=== PATIENT | female | born 1940 | race Caucasian/White ===

== ENCOUNTER → 2016-11-06 | Outpatient (CLI) | payer OTHER ==
[~2016-11-06] MED LIST: ACCUNEB SO1.25 MG/1 INH; AMITRIPTYLINE H10 M3 PO; BENICAR20 MG PO; BENTYL 20 MG TA20 M1 PO; BP PILL; COLACE100 MG PO; COZAAR 50 MG TA50 M2 PO; FAMCICLOVIR500 MG PO; LYRICA 50 MG50 MG PO; MEDROL DOSPAK21 TAB PO; NEXIUM40 MG PO; NORCO 10-325 T1 EACH PO; OXYCODONE HCL15 MG PO; POTASSIUM20 PO; PREDNISONE 10 M10 MG PO; PRILOSEC40 MG PO; SENNA PO; STOMACH PILL; VALIUM5 MG PO; VENTOLIN HFA 1818 GM INH; XANAX 0.5 MG0.5 MG PO; XARELTO15 MG PO; ZPAK PO
== END ==
LOC: SLEEPLAB 04-17 14:46
DX: G47.33 Obstructive sleep apnea (adult) (pediatric) (principal)

== ENCOUNTER → 2017-01-02 | Outpatient (CLI) | payer OTHER | LOC: ULTRA 15:30 | DX: M47.896 Other spondylosis, lumbar region (principal); I82.402 Acute embolism and thrombosis of unspecified deep veins of left lower extremity; M79.605 Pain in left leg; M79.89 Other specified soft tissue disorders ==

== ENCOUNTER → 2017-02-06 | Outpatient (CLI) | payer OTHER ==
[~2017-02-06] MED LIST changes: +ALBUTEROL2.5 MG/31 INH; +CHOLESTYRAMINE P4 GM PO; +CIPRO500 MG PO; +COMPAZINE10 MG PO; +COUMADIN 5 MG TA5 M1 PO; +KLOR-CON 1010 MEQ PO; +PRADAXA150 MG PO; +PROAIR HFA8.5 GM
== END ==
LOC: ULTRA 12:02
DX: M79.605 Pain in left leg (principal); R60.0 Localized edema

== ENCOUNTER 2017-08-04 11:58 | Emergency (ER) | payer OTHER ==
[~2017-08-04] VITALS: Ht 154.9 cm; Wt 86.2 kg
--- NOTE | ~2017-08-04 | EKG ---
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
[2017-08-04 14:20] LABS: ABSOLUTE NEUTROPHILS 3.7 thou/uL (1.4-8.2); BASOPHILS 0.4 % (0.0-2.0); EOSINOPHILS 1.3 % (0.0-3.0); HEMATOCRIT 38.2 % (37.0-47.0); HEMOGLOBIN 12.8 gm/dL (12.0-15.0); LYMPHOCYTES 33.9 % (24.0-44.0); MCH 29.9 pg (26.0-34.0); MCHC 33.4 g/dL (28.0-37.0); MCV 89.5 fL (80.0-100.0); MONOCYTES 5.3 % (1.0-8.0); PLATELET COUNT 222 thou/uL (150-400); POLYS 59.1 % (36.0-66.0); RBC 4.27 mil/uL (4.20-5.00); RDW 13.9 % (10.5-14.5); WBC 6.3 thou/uL (4.0-11.0)
[2017-08-04 14:27] LABS: ANION GAP 7 mmol/L (7-16); BUN 13 mg/dL (7-18); CALCIUM 9.5 mg/dL (8.5-10.1); CHLORIDE 107 mmol/L (98-107); CO2 27 mmol/L (21-32); CREATININE 1.2 mg/dL (0.6-1.0); GLUCOSE 108 mg/dL (74-106); POTASSIUM 4.2 mmol/L (3.5-5.1); SODIUM 141 mmol/L (136-145)
[2017-08-04 14:34] LABS: INR 1.3; PROTIME 13.4 Seconds (9.3-11.4)
[2017-08-04 14:36] LABS: ALBUMIN 3.5 g/dL (3.4-5.0); SGOT 16 U/L (15-37); SGPT 21 U/L (30-65); TOTAL BILIRUBIN 0.5 mg/dL (<0.1-1.0); TROPONIN-I < 0.04 ng/mL (<0.06)
[2017-08-04 15:43] LABS: URINE BILIRUBIN NEGATIVE (Negative); URINE BLOOD NEGATIVE (Negative); URINE CLARITY CLEAR; URINE COLOR YELLOW; URINE GLUCOSE-RANDOM* NEGATIVE (Negative); URINE KETONES NEGATIVE (Negative); URINE LEUKOCYTES-REFLEX NEGATIVE (Negative); URINE NITRITE-REFLEX NEGATIVE (Negative); URINE PROTEIN (DIPSTICK) NEGATIVE (Negative); URINE SPECIFIC GRAVITY <= 1.005 (1.005-1.035); URINE UROBILINOGEN 0.2 E.U./dl (0.2-1.0)
== END 2017-08-04 16:00 | disposition home or self-care (01) ==
LOC: ER 11:58
PROVIDERS: Nurse Practitioner Family
DX: R06.00 Dyspnea, unspecified (principal); I10 Essential (primary) hypertension; K21.9 Gastro-esophageal reflux disease without esophagitis; G47.30 Sleep apnea, unspecified; F41.9 Anxiety disorder, unspecified; Z86.711 Personal history of pulmonary embolism; Z90.49 Acquired absence of other specified parts of digestive tract; Z86.718 Personal history of other venous thrombosis and embolism

== ENCOUNTER 2017-08-05 13:53 | Inpatient (IN) | payer OTHER ==
[~2017-08-05] VITALS: Ht 154.9 cm; Wt 90.0 kg
--- NOTE | ~2017-08-05 | 2DMMODE ---
[facility] [address] [place] [address] 2 D/M-MODE ECHOCARDIOGRAM Name: FABHCARLENE Room #: 454-P ADM IN M.R.#: [id number] Admission: 08/05/17 Attend Phys: Aakash Banks Discharge: Date of : 40 Date of Service: 08/06/17 1252 Report #: [id number] THIS REPORT FOR: //name// APPROVED REPORT Study performed: 08/06/2017 11:57:58 EXAM: Comprehensive 2D, Doppler, and color-flow Echocardiogram Patient Location: Bedside Room #: 454 Status: routine BSA: 1.88 HR: 60 bpm BP: 134/65 mmHg Other Information Study Quality: Adequate Indications Dyspnea Syncope 2D Dimensions RVDd: 40.32 mm LVEF(%): 54.20 (>50%) IVSd: 13.12 (7-11mm) LVOT Diam: 19.79 (18-24mm) LVDd: 42.26 mm PWd: 13.21 (7-11mm) Ascending Ao: 31.45 (22-36mm) LVDs: 30.52 (25-40mm) Aortic Root: 29.79 mm IVC: 10.00 mm Sanford's LVEF: 54.20 % Volumes Left Atrial Volume (Systole) Single Plane 4CH: 44.01 mL Single Plane 2CH: 53.89 mL LA ESV Index: 28.00 mL/m2 Aortic Valve AoV Peak Ignacio.: 1.40 m/s AO Peak Gr.: 7.89 mmHg LVOT Max P.35 mmHg LVOT Max V: 1.16 m/s CHRISTIN Vmax: 2.53 cm2 Mitral Valve E/A Ratio: 1.5 MV Decel. Time: 176.27 ms [facility] [address] [place] [address] 2 D/M-MODE ECHOCARDIOGRAM Name: CHARLENE SANON Room #: 454-P [facility] IN ..#: [id number] Admission: 08/05/17 Attend Phys: Aakash Banks Discharge: Date of : 40 Date of Service: 08/06/17 1252 Report #: [id number] MV E Max Ignacio.: 1.14 m/s MV A Ignacio.: 0.78 m/s MV PHT: 51.12 ms IVRT: 96.89 ms Pulmonary Valve PV Peak Ignacio.: 0.88 m/s PV Peak Gr.: 3.10 mmHg Pulmonary Vein P Vein S: 0.82 m/s P Vein A: 0.28 m/s P Vein D: 0.53 m/s P Vein A Dur.: 101.5 msec P Vein S/D Ratio: 1.55 Tricuspid Valve TR Peak Ignacio.: 2.17 m/s TR Peak Gr.: 18.75 mmHg PA Pressure: 24.00 mmHg Left Ventricle The left ventricle is normal size. Mild concentric left ventricular hypertrophy. The left ventricular systolic function is normal. The left ventricular ejection fraction is within the normal range. LVEF is 55-60%. The left ventricular diastolic function is normal. Right Ventricle Right ventricle is at the upper limits of normal. The right ventricular systolic function is normal. Atria The left atrium size is normal. Right atrium is at the upper limits of normal. Aortic Valve The aortic valve is normal in structure. No aortic regurgitation is present. There is no aortic valvular stenosis. Mitral Valve The mitral valve is normal in structure. Trace mitral regurgitation. No evidence of mitral valve stenosis. Tricuspid Valve The tricuspid valve is normal in structure. There is trace tricuspid regurgitation. There is no pulmonary hypertension. Pulmonic Valve The pulmonary valve is normal in structure. There is no pulmonic [address] [address] 2 D/M-MODE ECHOCARDIOGRAM Name: FABCHARLENE Room #: 454-P [facility] IN ..#: [id number] Admission: 08/05/17 Attend Phys: Aakash Banks Discharge: Date of : 40 Date of Service: 08/06/17 1252 Report #: [id number] valvular regurgitation. Great Vessels The aortic root is normal in size. IVC is normal in size and collapses >50% with inspiration. Pericardium There is no pericardial effusion. <Conclusion> The left ventricle is normal size. Mild concentric left ventricular hypertrophy. LVEF is 55-60%. Right ventricle is at the upper limits of normal. The left atrium size is normal. The aortic valve is normal in structure. There is no aortic valvular stenosis. Trace mitral regurgitation. There is trace tricuspid regurgitation. There is no pulmonary hypertension. The aortic root is normal in size. There is no pericardial effusion. <ELECTRONICALLY SIGNED> By: Pascual Miramontes MD, FACC 08/06/17 1252 1252 125 Pascual Miramontes MD, FACC /INF
--- NOTE | ~2017-08-05 | EKG ---
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: Owen HARDWICK : 1940 Requested By: Mirella Robles Order Number: [id number] MD: Charles Nunes Measurements Intervals [place] Rate: 55 P: 69 VA: 152 QRS: 79 QRSD: 102 T: 87 QT: 446 QTc: 427 Interpretive Statements Sinus rhythm Low voltage, precordial leads Borderline T abnormalities, anterior leads Compared to ECG 08/04/2017 14:04:35 Low QRS voltage now present T-wave abnormality now present Electronically Signed On 08-05-2017 21:26:51 CDT by Charles Nunes [email or web address] <ELECTRONICALLY SIGNED> By: Charles Nunes MD 08/05/17 2126 1448 1448 Charles Nunes MD /[facility]
[2017-08-05 14:08] VITALS: BP 123/60
[2017-08-05 15:43] LABS: ABSOLUTE NEUTROPHILS 3.6 thou/uL (1.4-8.2); BASOPHILS 0.6 % (0.0-2.0); EOSINOPHILS 1.7 % (0.0-3.0); HEMATOCRIT 36.2 % (37.0-47.0); HEMOGLOBIN 12.3 gm/dL (12.0-15.0); LYMPHOCYTES 38.3 % (24.0-44.0); MCH 30.5 pg (26.0-34.0); MCHC 33.9 g/dL (28.0-37.0); MONOCYTES 6.6 % (1.0-8.0); PLATELET COUNT 198 thou/uL (150-400); POLYS 52.8 % (36.0-66.0); RBC 4.02 mil/uL (4.20-5.00); RDW 13.9 % (10.5-14.5); WBC 6.8 thou/uL (4.0-11.0)
[2017-08-05 15:55] LABS: ANION GAP 7 mmol/L (7-16); BUN 17 mg/dL (7-18); CALCIUM 9.1 mg/dL (8.5-10.1); CHLORIDE 104 mmol/L (98-107); CO2 28 mmol/L (21-32); CREATININE 1.2 mg/dL (0.6-1.0); GLUCOSE 123 mg/dL (74-106); POTASSIUM 4.2 mmol/L (3.5-5.1); SODIUM 139 mmol/L (136-145)
[2017-08-05 16:05] LABS: TROPONIN-I < 0.04 ng/mL (<0.06)
[2017-08-05 16:55] VITALS: BP 123/60
[2017-08-05 18:00] VITALS: BP 134/59
[2017-08-05 18:02] VITALS: BP 126/78
[2017-08-05 19:23] VITALS: BP 149/59
[2017-08-05 23:25] VITALS: BP 123/36
[2017-08-06 05:12] VITALS: BP 139/47
[2017-08-06 08:14] VITALS: BP 132/52
[2017-08-06 10:10] VITALS: BP 134/65
[2017-08-06 17:36] VITALS: BP 165/72
[2017-08-06 20:00] VITALS: BP 152/72
[2017-08-07 05:31] VITALS: BP 126/51
[2017-08-07 07:57] VITALS: BP 114/49
[2017-08-07] MEDS ORDERED: VANCOMYCIN HCL10 GM PO (10:08)
[2017-08-07 11:43] VITALS: BP 114/49
== END 2017-08-07 13:51 | disposition home or self-care (01) | DRG 641 ==
LOC: ER 13:53 → 4W 15:53 → EROBS 15:53 → 4W 18:01 → ENTRNSPT 08-07 13:44 → EDTRNSPTSTS 08-07 13:48 → 4W 08-07 13:51
PROVIDERS: Emergency Medicine
DX: E86.0 Dehydration (principal); F41.9 Anxiety disorder, unspecified; K21.9 Gastro-esophageal reflux disease without esophagitis; I10 Essential (primary) hypertension; G89.29 Other chronic pain; J45.909 Unspecified asthma, uncomplicated; K52.9 Noninfective gastroenteritis and colitis, unspecified; Z28.21 Immunization not carried out because of patient refusal; Z90.49 Acquired absence of other specified parts of digestive tract; Z87.81 Personal history of (healed) traumatic fracture; Z86.718 Personal history of other venous thrombosis and embolism; Z86.711 Personal history of pulmonary embolism; Z79.899 Other long term (current) drug therapy
CPT/HCPCS: 10045

== ENCOUNTER → 2017-09-10 | Outpatient (CLI) | payer OTHER ==
[~2017-09-10] MED LIST changes: +VANCOMYCIN HCL10 GM PO
== END ==
LOC: RAD 13:58
DX: J44.9 Chronic obstructive pulmonary disease, unspecified (principal)

== ENCOUNTER 2017-11-15 12:34 | Emergency (ER) | payer OTHER ==
[~2017-11-15] VITALS: Ht 165.1 cm; Wt 90.7 kg
--- NOTE | ~2017-11-15 | EKG ---
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 : 1940 Requested By: Yuir Nam Order Number: [id number] MD: Killian Arteaga Measurements Intervals [place] Rate: 61 P: 52 AR: 151 QRS: 65 QRSD: 108 T: 81 QT: 436 QTc: 440 Interpretive Statements Sinus rhythm Nonspecific T abnrm, anterolateral leads Compared to ECG 08/05/2017 14:48:39 No significant change was found Electronically Signed On 11-16-2017 8:38:05 CDT by Killian Arteaga [email or web address] <ELECTRONICALLY SIGNED> By: Killian Arteaga MD, [facility] 11/16/17 0838 1405 140 Killian Arteaga MD, FACC /EPI
[2017-11-15 13:33] LABS: ABSOLUTE NEUTROPHILS 3.8 thou/uL (1.4-8.2); BASOPHILS 0.5 % (0.0-2.0); EOSINOPHILS 1.3 % (0.0-3.0); HEMATOCRIT 36.3 % (37.0-47.0); HEMOGLOBIN 12.6 gm/dL (12.0-15.0); LYMPHOCYTES 36.1 % (24.0-44.0); MCH 32.1 pg (26.0-34.0); MCHC 34.7 g/dL (28.0-37.0); MCV 92.3 fL (80.0-100.0); MONOCYTES 5.4 % (1.0-8.0); PLATELET COUNT 204 thou/uL (150-400); POLYS 56.7 % (36.0-66.0); RBC 3.94 mil/uL (4.20-5.00); RDW 12.4 % (10.5-14.5); WBC 6.7 thou/uL (4.0-11.0)
[2017-11-15 13:40] LABS: ANION GAP 9 mmol/L (7-16); BUN 17 mg/dL (7-18); CALCIUM 8.7 mg/dL (8.5-10.1); CHLORIDE 107 mmol/L (98-107); CO2 25 mmol/L (21-32); CREATININE 1.2 mg/dL (0.6-1.0); GLUCOSE 121 mg/dL (74-106); POTASSIUM 3.9 mmol/L (3.5-5.1); SODIUM 141 mmol/L (136-145)
[2017-11-15 13:48] LABS: ALBUMIN 3.4 g/dL (3.4-5.0); SGOT 18 U/L (15-37); SGPT 28 U/L (30-65); TOTAL BILIRUBIN 0.4 mg/dL (<0.1-1.0); TOTAL PROTEIN 6.8 g/dL (6.4-8.2); TROPONIN-I <0.06 ng/mL (<0.06)
[2017-11-15 15:07] LABS: URINE BILIRUBIN NEGATIVE (Negative); URINE BLOOD TRACE (Negative); URINE CLARITY CLEAR; URINE COLOR YELLOW; URINE GLUCOSE-RANDOM* NEGATIVE (Negative); URINE KETONES NEGATIVE (Negative); URINE LEUKOCYTES-REFLEX NEGATIVE (Negative); URINE NITRITE-REFLEX NEGATIVE (Negative); URINE PROTEIN (DIPSTICK) NEGATIVE (Negative); URINE SPECIFIC GRAVITY <= 1.005 (1.005-1.035); URINE UROBILINOGEN 0.2 E.U./dl (0.2-1.0)
[2017-11-15] MEDS ORDERED: VAGISIL CREAM28 G1 TOP (15:50)
[2017-11-15] MEDS ORDERED: FLAGYL500 MG PO (15:50)
[2017-11-16 14:10] LABS: NEISSERIA GONORRHEA-PCR Negative (Negative)
== END 2017-11-15 16:00 | disposition home or self-care (01) ==
LOC: ER 12:34
PROVIDERS: Physician Assistant
DX: R19.7 Diarrhea, unspecified (principal); R06.02 Shortness of breath; N89.8 Other specified noninflammatory disorders of vagina; I10 Essential (primary) hypertension; K21.9 Gastro-esophageal reflux disease without esophagitis; F41.9 Anxiety disorder, unspecified; Z90.49 Acquired absence of other specified parts of digestive tract; Z88.1 Allergy status to other antibiotic agents; Z88.8 Allergy status to other drugs, medicaments and biological substances

== ENCOUNTER 2018-02-06 12:41 | Emergency (ER) | payer OTHER ==
[~2018-02-06] VITALS: Ht 154.9 cm; Wt 98.9 kg
--- NOTE | ~2018-02-06 | EKG ---
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 : 1940 Requested By: Suly Garvin Order Number: [id number] MD: Killian Arteaga Measurements Intervals [place] Rate: 68 P: 61 DC: 148 QRS: 62 QRSD: 93 T: 71 QT: 429 QTc: 457 Interpretive Statements Sinus rhythm Nonspecific T wave abnormality Compared to ECG 11/15/2017 14:05:14 No significant change was found Electronically Signed On 02-06-2018 17:17:22 CDT by Killian Arteaga [email or web address] <ELECTRONICALLY SIGNED> By: Killian Arteaga MD, [facility] 02/06/18 1717 1309 1309 Killian Arteaga MD, FACC /EPI
[~2018-02-06 12:41] MED LIST changes: +FLAGYL500 MG PO; +VAGISIL CREAM28 G1 TOP
[2018-02-06] MEDS ORDERED: PROTONIX 20 MG20 M1 PO (13:01)
[2018-02-06 13:56] LABS: ABSOLUTE NEUTROPHILS 3.5 thou/uL (1.4-8.2); BASOPHILS 0.7 % (0.0-2.0); EOSINOPHILS 1.6 % (0.0-3.0); HEMATOCRIT 35.5 % (37.0-47.0); HEMOGLOBIN 12.1 gm/dL (12.0-15.0); LYMPHOCYTES 36.4 % (24.0-44.0); MCH 32.2 pg (26.0-34.0); MCV 94.4 fL (80.0-100.0); PLATELET COUNT 206 thou/uL (150-400); POLYS 56.3 % (36.0-66.0); RBC 3.75 mil/uL (4.20-5.00); RDW 12.6 % (10.5-14.5); WBC 6.1 thou/uL (4.0-11.0)
[2018-02-06 14:04] LABS: CREATININE 1.2 mg/dL (0.6-1.0); POTASSIUM 3.9 mmol/L (3.5-5.1)
[2018-02-06 14:07] LABS: INR 1.2; PROTIME 12.4 Seconds (9.3-11.4)
[2018-02-06 14:10] LABS: TOTAL BILIRUBIN 0.4 mg/dL (<0.1-1.0); TOTAL PROTEIN 6.4 g/dL (6.4-8.2)
[2018-02-06 14:21] LABS: ALBUMIN 3.4 g/dL (3.4-5.0)
[2018-02-06] MEDS ORDERED: ANUSOL-HC30 GM TOP (15:12)
== END 2018-02-06 15:25 | disposition home or self-care (01) ==
LOC: ER 12:41
PROVIDERS: Physician Assistant
DX: K64.4 Residual hemorrhoidal skin tags (principal); R06.00 Dyspnea, unspecified; R53.1 Weakness; I10 Essential (primary) hypertension; J44.9 Chronic obstructive pulmonary disease, unspecified; K21.9 Gastro-esophageal reflux disease without esophagitis; Z90.49 Acquired absence of other specified parts of digestive tract; Z86.711 Personal history of pulmonary embolism; Z86.718 Personal history of other venous thrombosis and embolism; Z79.899 Other long term (current) drug therapy; Z88.8 Allergy status to other drugs, medicaments and biological substances

== ENCOUNTER 2019-04-17 13:01 | Emergency (ER) | payer OTHER ==
[~2019-04-17] VITALS: Ht 154.9 cm; Wt 88.5 kg
[~2019-04-17 13:01] MED LIST changes: +ANUSOL-HC30 GM TOP; +PROTONIX 20 MG20 M1 PO
[2019-04-17 14:17] LABS: CALCIUM 9.5 mg/dL (8.5-10.1); CREATININE 0.9 mg/dL (0.6-1.0); POTASSIUM 4.3 mmol/L (3.5-5.1)
[2019-04-17 14:20] LABS: URINE BILIRUBIN NEGATIVE (Negative); URINE BLOOD TRACE (Negative); URINE CLARITY CLEAR; URINE COLOR YELLOW; URINE GLUCOSE-RANDOM* NEGATIVE (Negative); URINE KETONES NEGATIVE (Negative); URINE LEUKOCYTES-REFLEX TRACE (Negative); URINE NITRITE-REFLEX NEGATIVE (Negative); URINE PROTEIN (DIPSTICK) NEGATIVE (Negative); URINE SPECIFIC GRAVITY 1.015 (1.005-1.035); URINE UROBILINOGEN 0.2 E.U./dl (0.2-1.0)
[2019-04-17 14:23] LABS: ALBUMIN 3.1 g/dL (3.4-5.0); TOTAL BILIRUBIN 0.5 mg/dL (<0.1-1.0); TOTAL PROTEIN 6.9 g/dL (6.4-8.2)
[2019-04-17 14:50] LABS: ABSOLUTE NEUTROPHILS 2.1 thou/uL (1.4-8.2); BASOPHILS 0.7 % (0.0-2.0); EOSINOPHILS 1.1 % (0.0-3.0); HEMATOCRIT 30.9 % (37.0-47.0); HEMOGLOBIN 10.2 gm/dL (12.0-15.0); LYMPHOCYTES 36.1 % (24.0-44.0); MCH 30.3 pg (26.0-34.0); MCHC 33.1 g/dL (28.0-37.0); MCV 91.4 fL (80.0-100.0); MONOCYTES 10.5 % (1.0-8.0); PLATELET COUNT 234 thou/uL (150-400); POLYS 51.6 % (36.0-66.0); RBC 3.38 mil/uL (4.20-5.00); RDW 17.8 % (10.5-14.5); WBC 4.1 thou/uL (4.0-11.0)
[2019-04-17] MEDS ORDERED: NORCO 5-325 TA1 EAC1 PO (17:12)
[2019-04-17] MEDS ORDERED: SENNA PLUS TAB1 EACH PO ×2 (17:13→17:16)
[2019-04-17 17:55] VITALS: BP 167/69
== END 2019-04-17 17:56 | disposition home or self-care (01) ==
LOC: ER 13:01
PROVIDERS: Physician Assistant
DX: K86.3 Pseudocyst of pancreas (principal); R10.84 Generalized abdominal pain; M79.605 Pain in left leg; M79.604 Pain in right leg; I10 Essential (primary) hypertension; K21.9 Gastro-esophageal reflux disease without esophagitis; G47.30 Sleep apnea, unspecified; F41.9 Anxiety disorder, unspecified; Z98.51 Tubal ligation status; Z90.49 Acquired absence of other specified parts of digestive tract; Z86.718 Personal history of other venous thrombosis and embolism; Z86.711 Personal history of pulmonary embolism; Z88.6 Allergy status to analgesic agent; Z88.8 Allergy status to other drugs, medicaments and biological substances

== ENCOUNTER 2019-12-02 13:32 | Inpatient (IN) | payer OTHER ==
[~2019-12-02] VITALS: Ht 154.9 cm; Wt 99.2 kg
[2019-12-02 13:32] VITALS: BP 148/64
[~2019-12-02 13:32] MED LIST changes: +NORCO 5-325 TA1 EAC1 PO; +SENNA PLUS TAB1 EACH PO
[2019-12-02 15:10] LABS: ABSOLUTE NEUTROPHILS 4.5 thou/uL (1.4-8.2); BASOPHILS 1.2 % (0.0-2.0); EOSINOPHILS 1.6 % (0.0-3.0); HEMATOCRIT 36.2 % (37.0-47.0); HEMOGLOBIN 12.3 gm/dL (12.0-15.0); LYMPHOCYTES 27.8 % (24.0-44.0); MCV 94.3 fL (80.0-100.0); MONOCYTES 6.3 % (1.0-8.0); PLATELET COUNT 219 thou/uL (150-400); POLYS 63.1 % (36.0-66.0); RBC 3.84 mil/uL (4.20-5.00); RDW 13.6 % (10.5-14.5); WBC 7.2 thou/uL (4.0-11.0)
[2019-12-02 15:19] LABS: ANION GAP 7 mmol/L (7-16); BUN 20 mg/dL (7-18); CALCIUM 8.9 mg/dL (8.5-10.1); CHLORIDE 107 mmol/L (98-107); CO2 29 mmol/L (21-32); CREATININE 1.1 mg/dL (0.6-1.0); GLUCOSE 119 mg/dL (74-106); POTASSIUM 4.1 mmol/L (3.5-5.1); SODIUM 143 mmol/L (136-145)
[2019-12-02 15:29] LABS: ALBUMIN 3.4 g/dL (3.4-5.0); SGOT 19 U/L (15-37); SGPT 28 U/L (30-65); TOTAL BILIRUBIN 0.3 mg/dL (0.2-1.0); TOTAL PROTEIN 7.2 g/dL (6.4-8.2); TROPONIN-I <0.06 ng/mL (<0.06)
[2019-12-02 19:25] LABS: INR 1.1; PROTIME 11.6 Seconds (9.3-11.4)
[2019-12-02 20:47] VITALS: BP 129/24
--- NOTE | 2019-12-02 20:51 | NUR ---
TRIED TO CALL REPORT, PT UNAVAILABLE.
[2019-12-02 21:30] VITALS: BP 124/58
--- NOTE | 2019-12-02 21:45 | NUR ---
ADMIT FROM EMERGENCY ROOM ON HEPARIN DRIP. REPEATED DVT. EXPLAIN TO PT PLAN OF CARE WITH MEDICATION. AND BEDREST. VERBALIZES UNDERSTANDING. LUNGS ARE CLEAR. COMPLAINS OF SHORTNESS OF BREATH. REQUEST BREATHING TREATMENTS. RESPIRTOARY GIVES TREATEMENNTS. SLEEP APNEA AND THAT AT NIGHT RT PROVIDED IT FOR PT. PAIN MEDS SERGIO HAS GENERALIZED PAIN SHE REPORTS. CALL LIGHT WITHIN REACH IF NEEDS ASSISTANCE. WILL CONTINUE TO MONITOR AND ASSESS PTT/ AND HEPARIN DRIP. AND CONTINUE BEDREST AT THIS TIME.
[2019-12-02 22:38] LABS: HEMOGLOBIN 11.2 gm/dL (12.0-15.0); MCH 31.8 pg (26.0-34.0); MCHC 33.1 g/dL (28.0-37.0); RBC 3.54 mil/uL (4.20-5.00); RDW 13.9 % (10.5-14.5); WBC 10.4 thou/uL (4.0-11.0)
[2019-12-03 00:31] VITALS: BP 101/50
[2019-12-03 02:28] LABS: ANION GAP < 0 mmol/L (7-16); BUN 20 mg/dL (7-18); CALCIUM 8.2 mg/dL (8.5-10.1); CHLORIDE 107 mmol/L (98-107); CO2 25 mmol/L (21-32); CREATININE 1.4 mg/dL (0.6-1.0); GLUCOSE 134 mg/dL (74-106); POTASSIUM 3.8 mmol/L (3.5-5.1); SODIUM 131 mmol/L (136-145)
[2019-12-03 04:31] VITALS: BP 95/38
--- NOTE | 2019-12-03 07:57 | EKG ---
[facility] [address] [place] [address] ELECTROCARDIOGRAM REPORT Name: CHARLENE SANON Room #: 213-P ADM IN M.R.#: [id number] Admission: 12/02/19 Attend Phys: Campos Pickett MD Discharge: Date of : 40 Report #: [id number] THIS REPORT FOR: cc: FAM - No family physician/PCP FAM - No family physician/PCP Killian Arteaga MD [facility] THIS REPORT FOR: //name// [facility] ED Test Date: 2019-12-02 Test Time: 14:08:44 Pat Name: CHARLENE SANON Department: Room: [facility] Gender: F Oncology Social Work: : 1940 Requested By: Jeremy Vela Order Number: [id number] MD: Killian Arteaga Measurements Intervals [place] Rate: 61 P: 48 NV: 135 QRS: 71 QRSD: 88 T: 78 QT: 429 QTc: 432 Interpretive Statements Sinus rhythm Nonspecific T wave abnormality Compared to ECG 02/06/2018 13:09:49 No significant change was found Electronically Signed On 12-03-2019 7:57:05 CDT by Killian Arteaga [email or web address] <ELECTRONICALLY SIGNED> By: Killian Arteaga MD, FAC 12/03/19 0757 1408 1408 Killian Arteaga MD, [facility] /EPI
[2019-12-03 08:35] VITALS: BP 138/66
[2019-12-03 12:00] VITALS: BP 126/49
[2019-12-03 12:26] LABS: URINE BILIRUBIN NEGATIVE (Negative); URINE BLOOD TRACE (Negative); URINE CLARITY CLEAR; URINE COLOR YELLOW; URINE GLUCOSE-RANDOM* NEGATIVE (Negative); URINE KETONES NEGATIVE (Negative); URINE LEUKOCYTES-REFLEX NEGATIVE (Negative); URINE NITRITE-REFLEX NEGATIVE (Negative); URINE PROTEIN (DIPSTICK) NEGATIVE (Negative); URINE SPECIFIC GRAVITY 1.015 (1.005-1.035); URINE UROBILINOGEN 0.2 E.U./dl (0.2-1.0)
[2019-12-03 16:00] VITALS: BP 140/64
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
[2019-12-03 20:03] VITALS: BP 128/68
[2019-12-04] VITALS (8 sets, daily range): BP systolic 108–126; BP diastolic 47–67
[2019-12-04 04:57] LABS: HEMATOCRIT 32.2 % (37.0-47.0); HEMOGLOBIN 10.6 gm/dL (12.0-15.0); MCH 31.8 pg (26.0-34.0); MCHC 32.8 g/dL (28.0-37.0); RBC 3.32 mil/uL (4.20-5.00); RDW 14.1 % (10.5-14.5)
[2019-12-04 05:35] LABS: CALCIUM 8.8 mg/dL (8.5-10.1); CREATININE 1.3 mg/dL (0.6-1.0); POTASSIUM 3.9 mmol/L (3.5-5.1)
[2019-12-04] MEDS ORDERED: ALPRAZOLAM1 MG PO (22:43)
[2019-12-05] VITALS (16 sets, daily range): BP systolic 116–156; BP diastolic 49–89
--- NOTE | 2019-12-05 03:54 | NUR ---
Assumed pt care at 1900. Pt is alert and oriented with no sign of distress noted in pt. Trach and Vent in place. Pt is stable laying in bed. Repsitioning done. Assessment completed and documented. Vebrlaizes pain. Pain med administered accordingly. Pt is stablke through the night. No acute event over night. Continue to monitor. POC.
[2019-12-05 05:18] LABS: HEMATOCRIT 31.8 % (37.0-47.0); HEMOGLOBIN 10.5 gm/dL (12.0-15.0); MCH 31.7 pg (26.0-34.0); MCHC 33.1 g/dL (28.0-37.0); MCV 95.9 fL (80.0-100.0); RBC 3.32 mil/uL (4.20-5.00); RDW 13.7 % (10.5-14.5)
[2019-12-05 06:44] LABS: CALCIUM 8.4 mg/dL (8.5-10.1); CREATININE 1.4 mg/dL (0.6-1.0)
--- NOTE | 2019-12-05 14:58 | NUR ---
Possible dc home tomorrow. Pt has IVC filter placed today. Patient to be instructed to call the unit back or CM office once she is back home with the name of her home health agency then her dc instructions and summary can be faxed for resumption of her hh services. The pt can not recall the agency name and cm has been unable to reach her pcp office.
--- NOTE | 2019-12-05 17:57 | NUR ---
PT CARE ASSUMED APPROX 0700. ASSESSMENTS CHARTED. PT REPORTS ADEQUATE PAIN MANAGEMENT OF CHRONIC BACK PAIN. MEDS TO POC TO MANAGE ANXIETY WELL. PT COMPLETED IVC FILER PLACEMENT THIS SHIFT WITHOUT ISSUE. RIGHT GROIN POST PROCEDURE SITE C/D/I. PT DENIES QUESTIONS OR CONCERNS REGARDING POC AT THIS TIME. NO DISTRESS NOTED.
[2019-12-06 04:00] VITALS: BP 125/51
[2019-12-06 07:35] VITALS: BP 131/57
--- NOTE | 2019-12-06 08:00 | NUR ---
PATIENT IS PROGRESSING SLOWLY IN HER CARE PLAN. VITAL SIGNS STABLE WITH PATIENT HAVING NO COMPLAINTS OF NAUSEA. PATIENT DID COMPLAIN OF PAIN FREQUENTLY IN BACK WHICH WAS TREATED APPROPRIATELY THROUGH MEDICATION. FULLY ORIENTED, PATIENT IS ABLE TO CALL FOR NEEDS. PATIENT IS HIGHLY ANXIOUS. BREATHING STABLE EVIDENCED BY ASSESSMENTS. PATIENT REQUESTED AND THEN COMPLAINED ABOUT THE EXTERNAL FEMALE CATHETER STATING "IT HURTS". SHORTLY AFTER DC'ING CATHETER PATIENT BECAME IRATE OVER NURSE TAKING IT AWAY. PATIENT IS A HIGH FALL RISK BUT IS NOT ALWAYS COMPLIANT. CATHETER SITE IN GROIN FOR IVC FILTER CLEAN DRY AND INTACT. CONTINUE PLAN OF CARE.
--- NOTE | 2019-12-06 10:48 | 2DMMODE ---
[facility] [place] [address] 2 D/M-MODE ECHOCARDIOGRAM Name: CHARLENE SANON Room #: 201-P ADM IN M.R.#: [id number] Admission: 12/02/19 Attend Phys: Campos Pickett MD Discharge: Date of : 40 Report #: [id number] THIS REPORT FOR: cc: FAM - No family physician/PCP FAM - No family physician/PCP Killian Arteaga MD [facility] ~ APPROVED REPORT Study performed: 12/06/2019 09:19:06 EXAM: Comprehensive 2D, Doppler, and color-flow Echocardiogram Patient Location: Bedside Room #: 201 Status: routine BSA: 1.96 HR: 70 bpm BP: 125/51 mmHg Rhythm: NSR Other Information Study Quality: Adequate Indications COPD Hypertension/HDD PE, HLD 2D Dimensions RVDd: 31.73 mm IVSd: 11.07 (7-11mm) LVOT Diam: 17.70 (18-24mm) LVDd: 47.19 mm PWd: 10.01 (7-11mm) Ascending Ao: 30.34 (22-36mm) LVDs: 29.32 (25-40mm) Aortic Root: 31.30 mm IVC: 12.00 mm Volumes Left Atrial Volume (Systole) Single Plane 4CH: 48.05 mL Single Plane 2CH: 53.22 mL LA ESV Index: 28.00 mL/m2 Aortic Valve AoV Peak Ignacio.: 1.88 m/s AO Peak Gr.: 14.13 mmHg LVOT Max P.09 mmHg LVOT Max V: 1.42 m/s [facility] [address] [place] [address] 2 D/M-MODE ECHOCARDIOGRAM Name: FABCHARLENE Room #: 201-P [facility] IN Kwaku.#: [id number] Admission: 12/02/19 Attend Phys: Campos Pickett MD Discharge: Date of : 40 Report #: [id number] CHRISTIN Vmax: 1.86 cm2 Mitral Valve E/A Ratio: 1.2 MV Decel. Time: 207.97 ms MV E Max Ignacio.: 1.04 m/s MV A Ignacio.: 0.84 m/s MV PHT: 60.31 ms IVRT: 100.35 ms Pulmonary Valve PV Peak Ignacio.: 1.06 m/s PV Peak Gr.: 4.52 mmHg Pulmonary Vein P Vein S: 0.72 m/s P Vein A: 0.34 m/s P Vein D: 0.43 m/s P Vein A Dur.: 100.3 msec P Vein S/D Ratio: 1.67 Tricuspid Valve RAP Estimate: 10.00 mmHg Left Ventricle The left ventricle is normal size. There is normal LV segmental wall motion. There is normal left ventricular wall thickness. The left ventricular systolic function is normal. The left ventricular ejection fraction is within the normal range. LVEF is 60-65%. Mild diastolic dysfunction is present (impaired relaxation pattern). Right Ventricle The right ventricle is normal size. The right ventricular systolic function is normal. Atria The left atrium size is normal. The right atrium size is normal. Aortic Valve The aortic valve is normal in structure. No aortic regurgitation is present. There is no aortic valvular stenosis. Mitral Valve The mitral valve is normal in structure. There is no mitral valve regurgitation noted. No evidence of mitral valve stenosis. Tricuspid Valve [facility] [address] [place] [address] 2 D/M-MODE ECHOCARDIOGRAM Name: FABCHARLENE Room #: 201-P ADM IN M.R.#: [id number] Admission: 12/02/19 Attend Phys: Campos Pickett MD Discharge: Date of : 40 Report #: [id number] The tricuspid valve is normal in structure. There is no tricuspid valve regurgitation noted. Unable to assess PA pressure. Pulmonic Valve The pulmonary valve is normal in structure. Trace pulmonic regurgitation. Great Vessels The aortic root is normal in size. IVC is normal in size and collapses <50% with inspiration. Pericardium There is no pericardial effusion. <Conclusion> The left ventricular systolic function is normal. There is normal LV segmental wall motion. LVEF is 60-65%. The aortic valve is normal in structure. No aortic regurgitation or stenosis The mitral valve is normal in structure. No mitral valve regurgitation. Unable to assess pulmonary artery pressure. There is no pericardial effusion. <ELECTRONICALLY SIGNED> By: Killian Arteaga MD, [facility] 12/06/19 1048 1048 1048 Killian Arteaga MD, [facility] /INF
[2019-12-06] MEDS ORDERED: NYSTATIN100000 UNI SW&SWALLOW (10:58)
[2019-12-06] MEDS ORDERED: ASPIRIN EC325 MG PO (11:01)
[2019-12-06 11:10] VITALS: BP 123/89
--- NOTE | 2019-12-06 11:50 | NUR ---
REC CARE OF PT AT SHIFT CHANGE, SHE CALLS FLY TO ADMIT TO ANXIETY, AND FEELING SHE CANNOT BREATHE, 02 SATS ARE EXCELLENT. STATES SHE SHOULDN'T GO HOME BECAUSE SHE IS STILL SICK. THEN KEEPS ASKING FOR RT TX. STATES SHE DOESN'T HAVE HER KEYS, STATES SHE CANNOT GET AHOLD OF ANYONE. CALLED DAUGHTER WU AND WAS ABLE TO GET AHOLD OF HER. 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 STATES SHE'LL CALL AT 14;00 TOLD PT AND SHE SAID SHE DIDN'T BELIEVE IT AND THEN ASKED TO GET READY LET HER KNOW WE'D HELP HER GET READY CLOSER TO TIME WE NEED TO KEEP IV ACCESS AND TELE MONITORING ON HER.
[2019-12-06 15:25] VITALS: BP 156/70
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
== END 2019-12-06 14:31 | disposition home health service (06) | DRG 166 ==
LOC: ER 13:32 → 2N 19:06 → EROBS 19:06 → 2N 21:37
PROVIDERS: Hospitalist; Nurse Practitioner Family; Physician Assistant; ADMIT Internal Medicine; ATTEND Internal Medicine
PROC: 5A09357 Assistance with Respiratory Ventilation, Less than 24 Consecutive Hours, Continuous Positive Airway Pressure (ICD-10-PCS; 2019-12-03)
PROC: 5A09357 Assistance with Respiratory Ventilation, Less than 24 Consecutive Hours, Continuous Positive Airway Pressure (ICD-10-PCS; 2019-12-04)
PROC: 06H03DZ Insertion of Intraluminal Device into Inferior Vena Cava, Percutaneous Approach (ICD-10-PCS; principal; 2019-12-05)
PROC: 5A09357 Assistance with Respiratory Ventilation, Less than 24 Consecutive Hours, Continuous Positive Airway Pressure (ICD-10-PCS; principal; 2019-12-05)
PROC: 5A09357 Assistance with Respiratory Ventilation, Less than 24 Consecutive Hours, Continuous Positive Airway Pressure (ICD-10-PCS; 2019-12-06)
DX: I26.99 Other pulmonary embolism without acute cor pulmonale (principal); J96.01 Acute respiratory failure with hypoxia; Z68.41 Body mass index [BMI] 40.0-44.9, adult; E46 Unspecified protein-calorie malnutrition; D68.59 Other primary thrombophilia; G47.33 Obstructive sleep apnea (adult) (pediatric); F41.9 Anxiety disorder, unspecified; K21.9 Gastro-esophageal reflux disease without esophagitis; M19.90 Unspecified osteoarthritis, unspecified site; I12.9 Hypertensive chronic kidney disease with stage 1 through stage 4 chronic kidney disease, or unspecified chronic kidney disease; E66.01 Morbid (severe) obesity due to excess calories; N18.3 Chronic kidney disease, stage 3 (moderate); G47.00 Insomnia, unspecified; R53.81 Other malaise; R19.7 Diarrhea, unspecified; N31.2 Flaccid neuropathic bladder, not elsewhere classified; N39.3 Stress incontinence (female) (male); E78.5 Hyperlipidemia, unspecified; J44.9 Chronic obstructive pulmonary disease, unspecified; Z86.718 Personal history of other venous thrombosis and embolism; Z99.81 Dependence on supplemental oxygen; Z90.49 Acquired absence of other specified parts of digestive tract; Z79.899 Other long term (current) drug therapy; Z88.5 Allergy status to narcotic agent; Z88.8 Allergy status to other drugs, medicaments and biological substances; Z79.01 Long term (current) use of anticoagulants
CPT/HCPCS: 10081

== ENCOUNTER 2019-12-08 12:03 | Emergency (ER) | payer OTHER ==
[~2019-12-08] VITALS: Ht 154.9 cm; Wt 90.7 kg
[~2019-12-08 12:03] MED LIST changes: +ALPRAZOLAM1 MG PO; +ASPIRIN EC325 MG PO; +NYSTATIN100000 UNI SW&SWALLOW
--- NOTE | 2019-12-08 14:29 | EKG ---
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
[2019-12-08 14:47] LABS: ABSOLUTE NEUTROPHILS 3.6 thou/uL (1.4-8.2); BASOPHILS 0.6 % (0.0-2.0); EOSINOPHILS 1.2 % (0.0-3.0); HEMATOCRIT 33.7 % (37.0-47.0); HEMOGLOBIN 11.2 gm/dL (12.0-15.0); MCH 31.9 pg (26.0-34.0); MCHC 33.3 g/dL (28.0-37.0); MCV 95.6 fL (80.0-100.0); MONOCYTES 5.8 % (1.0-8.0); PLATELET COUNT 211 thou/uL (150-400); POLYS 62.4 % (36.0-66.0); RBC 3.53 mil/uL (4.20-5.00); RDW 13.9 % (10.5-14.5); WBC 5.7 thou/uL (4.0-11.0)
[2019-12-08 14:55] LABS: ANION GAP 10 mmol/L (7-16); BUN 13 mg/dL (7-18); CHLORIDE 105 mmol/L (98-107); CO2 26 mmol/L (21-32); CREATININE 1.1 mg/dL (0.6-1.0); GLUCOSE 121 mg/dL (74-106); SODIUM 141 mmol/L (136-145)
[2019-12-08 15:01] LABS: ALBUMIN 3.3 g/dL (3.4-5.0); APTT 54.1 Seconds (24.5-32.8); INR 1.3; PROTIME 13.4 Seconds (9.3-11.4); SGOT < 5 U/L (15-37); SGPT 33 U/L (30-65); TOTAL BILIRUBIN 0.3 mg/dL (0.2-1.0); TOTAL PROTEIN 6.9 g/dL (6.4-8.2)
[2019-12-08 18:01] VITALS: BP 183/74
== END 2019-12-08 18:01 | disposition home or self-care (01) ==
LOC: ER 12:03
PROVIDERS: Physician Assistant
DX: R53.1 Weakness (principal); I10 Essential (primary) hypertension; K21.9 Gastro-esophageal reflux disease without esophagitis; Z90.49 Acquired absence of other specified parts of digestive tract; Z79.899 Other long term (current) drug therapy; Z88.5 Allergy status to narcotic agent; Z88.8 Allergy status to other drugs, medicaments and biological substances

== ENCOUNTER 2020-01-06 12:53 | Emergency (ER) | payer OTHER ==
[~2020-01-06] VITALS: Ht 154.9 cm; Wt 90.7 kg
[2020-01-06 14:59] LABS: BASOPHILS 0.4 % (0.0-2.0); EOSINOPHILS 2.5 % (0.0-3.0); HEMOGLOBIN 10.8 gm/dL (12.0-15.0); LYMPHOCYTES 33.6 % (24.0-44.0); MCH 32.3 pg (26.0-34.0); MCHC 33.6 g/dL (28.0-37.0); MONOCYTES 6.3 % (1.0-8.0); PLATELET COUNT 213 thou/uL (150-400); POLYS 57.2 % (36.0-66.0); RBC 3.33 mil/uL (4.20-5.00); RDW 13.3 % (10.5-14.5); WBC 5.2 thou/uL (4.0-11.0)
[2020-01-06 15:10] LABS: ANION GAP 8 mmol/L (7-16); BUN 10 mg/dL (7-18); CALCIUM 8.5 mg/dL (8.5-10.1); CHLORIDE 107 mmol/L (98-107); CO2 27 mmol/L (21-32); CREATININE 1.1 mg/dL (0.6-1.0); GLUCOSE 107 mg/dL (74-106); POTASSIUM 3.8 mmol/L (3.5-5.1); SODIUM 142 mmol/L (136-145)
[2020-01-06 15:20] LABS: ALBUMIN 3.2 g/dL (3.4-5.0); SGOT 14 U/L (15-37); SGPT 21 U/L (30-65); TOTAL BILIRUBIN 0.2 mg/dL (0.2-1.0); TOTAL PROTEIN 6.4 g/dL (6.4-8.2); TROPONIN-I <0.06 ng/mL (<0.06)
[2020-01-06 17:01] VITALS: BP 138/52
== END 2020-01-06 17:01 | disposition home or self-care (01) ==
LOC: ER 12:53
PROVIDERS: Emergency Medicine
DX: R06.00 Dyspnea, unspecified (principal); I10 Essential (primary) hypertension; K21.9 Gastro-esophageal reflux disease without esophagitis; Z90.49 Acquired absence of other specified parts of digestive tract; Z79.899 Other long term (current) drug therapy; Z88.8 Allergy status to other drugs, medicaments and biological substances; Z79.82 Long term (current) use of aspirin; Z20.828 Contact with and (suspected) exposure to other viral communicable diseases

== ENCOUNTER 2020-01-13 11:43 | Emergency (ER) | payer OTHER ==
[~2020-01-13] VITALS: Ht 154.9 cm; Wt 90.7 kg
--- NOTE | ~2020-01-13 | EMS ---
[address] [address] EMS Patient Care Report Name: CHARLENE THOMPSON Room #: REG KAREN Chavira#: [id number] Admission: 01/13/20 Attend Phys: Discharge: Date of : 40 Report #: [id number] THIS REPORT FOR: //name// Report Transmitted: 01/13/2020 12:03 EMS Care Summary [facility] Curly SHEA Incident [id number] @ 01/13/2020 10:43 Incident Location [address] [place] [address] Patient Charlene Thompson Female, 79 Years 1940 Patient Address [address] [place] [address] Patient History Chronic Obstructive Pulmonary Disease (COPD),Unspecified asthma,Edema, unspecified,Anxiety disorder, unspecified,Other venous embolism and thrombosis,Polyneuropathy, unspecified,Dysthymic disorder,Hypertension (HTN),Direct infection of unspecified joint in infectious and parasitic diseases classified elsewhere, Patient Allergies , Patient Medications Albuterol, Aspirin, Losartan, Pradaxa, Chief Complaint Shortness of Breath Disposition Transported No Lights/[place] Reason Breathing Problem Transported To [facility] Narrative [address] [address] EMS Patient Care Report Name: CHARLENE THOMPSON Room #: REG KAREN Chavira#: [id number] Admission: 01/13/20 Attend Phys: Discharge: Date of : 40 Report #: [id number] dispatched to a private residence for a breathing problem. On scene, ems was met by [facility] with a 79 yof complaining of shortness of breath. Pt states she has been experiencing sob x3 days with no relief. Pt states she was seen at [facility] on Sunday for the same complaint, claims they did not do anything for her and discharged her. Pt states she normally takes a breathing treatment but feels her albuterol does not help her. Pt claims she has not had a treatment since a day and a half ago. Pt also complains of right rib and right back pain due a fall. Pt states she suffered a fall last night and was unable to get herself up until approx 0800 this morning. Pt states she fell on her right side and could not wake anyone up to help her. Pt denies losing consciousness but admits to being on a blood thinner and aspirin. Pt States she spoke to her doctor who was expecting her at the hospital yesterday and also spoke to the nurse line today advising to be seen at the nearest hospital. Pt denies chest px, nausea/vomiting, dizziness, headache, fever, cough. Upon arrival, pt was found sitting in her recliner in her room. Pt was awake alert and oriented, airway was patent, breathing was normal - non labored, circulation was normal and regular, skin pink warm dry, physical assessment as noted, no obvious trauma noted. Bsi, pt contact, abcs, lung sounds, 12 lead obtained by Matthew Palomares and noted as unremarkable, pt ambulated to [facility] with assistance and secured, pt loaded into unit and locked. Abcs, vitals as noted, blood glucose, ETCO2 cannula applied, transport initiated, oxygen via nc applied for comfort, vitals repeated, pt reassessed, pt remained stable without any changes, at destination pt was unloaded from unit and wheeled into ed, pt moved from gurney to ed bed via sheet transfer, pt report given and care transferred to RN at receiving facility. Gir577 returned to service without incident. Initial Vitals @11:29Pain: 11/13, @11:11Pain: 11/13, @11:03SpO2: 99, @11:08SpO2: 100, @11:18SpO2: 100, @11:28SpO2: 100, @11:32SpO2: 100, @10:54 @11:18P: 67,R: 18,BP: 142/73,Revised Trauma: 8, @11:32P: 59,R: 18,BP: 125/60,Revised Trauma: 8, @11:04P: 78,R: 22,BP: 150/80,Revised Trauma: 8, @11:23BiIR1: 38, @11:92UwTC0: 37, @11:51AiWC8: 31, @11:08KeQW5: 40, @11:80QcQV7: 41, @11:18GCS: 15, @11:32GCS: 15, [address] [address] EMS Patient Care Report Name: FABCHARLENE Room #: REG KAREN Chavira#: [id number] Admission: 01/13/20 Attend Phys: Discharge: Date of : 40 Report #: [id number] @11:04GCS: 15, @11:03Glucose: 138, Assessments @10:50MENTAL:SKIN:HEENT:LUNG SOUNDS:ABDOMEN:PELVIS//GI:EXTREMITIES:PULSE:NEURO: Impression Acute Respiratory Distress (Dyspnea) Procedures @11:07Other - Medication - 2.000 Liters per Minute (l/min [fluid]) - Nasal CannulaResponse: Unchanged@11:03Digital respired carbon dioxide monitoring (regime/therapy)Response: UnchangedSucceeded@11:08Digital respired carbon dioxide monitoring (regime/therapy)Response: UnchangedSucceeded@11:18Digital respired carbon dioxide monitoring (regime/therapy)Response: UnchangedSucceeded@11:28Digital respired carbon dioxide monitoring (regime/therapy)Response: UnchangedSucceeded@11:32Digital respired carbon dioxide monitoring (regime/therapy)Response: UnchangedSucceeded@10:5412-Lead ECGResponse: UnchangedSucceeded Timeline 10:42,Call Received 10:42,Dispatch Notified 10:42,Psap Call 10:43,Dispatched 10:43,En Route 10:48,On Scene 10:50,At Patient 10:54,12-Lead ECG,Response: UnchangedSucceeded, 10:54,BP: / M,PULSE: ,RR: R,SPO2: Ox,ETCO2: ,BG: ,PAIN: ,GCS: , 11:03,Digital respired carbon dioxide monitoring (regime/therapy),Response: UnchangedSucceeded, 11:03,BP: / M,PULSE: ,RR: R,SPO2: 99 Ox,ETCO2: ,BG: ,PAIN: ,GCS: , 11:03,BP: / M,PULSE: ,RR: R,SPO2: Ox,ETCO2: 38 ,BG: ,PAIN: ,GCS: , 11:03,BP: / M,PULSE: ,RR: R,SPO2: Ox,ETCO2: ,B,PAIN: ,GCS: , 11:04,BP: 150/80 M,PULSE: 78,RR: 22 R,SPO2: Ox,ETCO2: ,BG: ,PAIN: ,GCS: , 11:04,BP: / M,PULSE: ,RR: R,SPO2: Ox,ETCO2: ,BG: ,PAIN: ,GCS: 15, 11:07,Other - Medication - 2.000 Liters per Minute (l/min [fluid]) - Nasal Cannula,Response: Unchanged 11:08,Digital respired carbon dioxide monitoring (regime/therapy),Response: UnchangedSucceeded, 11:08,BP: / M,PULSE: ,RR: R,SPO2: 100 Ox,ETCO2: ,BG: ,PAIN: ,GCS: , 11:08,BP: / M,PULSE: ,RR: R,SPO2: Ox,ETCO2: 37 ,BG: ,PAIN: ,GCS: , 11:11,Depart Scene 11:11,BP: / M,PULSE: ,RR: R,SPO2: Ox,ETCO2: ,BG: ,PAIN: 7,GCS: , [address] [address] EMS Patient Care Report Name: CHARLENE THOMPSON Room #: REG Tuyet.#: [id number] Admission: 01/13/20 Attend Phys: Discharge: Date of : 40 Report #: [id number] 11:18,Digital respired carbon dioxide monitoring (regime/therapy),Response: UnchangedSucceeded, 11:18,BP: / M,PULSE: ,RR: R,SPO2: 100 Ox,ETCO2: ,BG: ,PAIN: ,GCS: , 11:18,BP: 142/73 M,PULSE: 67,RR: 18 R,SPO2: Ox,ETCO2: ,BG: ,PAIN: ,GCS: , 11:18,BP: / M,PULSE: ,RR: R,SPO2: Ox,ETCO2: 31 ,BG: ,PAIN: ,GCS: , 11:18,BP: / M,PULSE: ,RR: R,SPO2: Ox,ETCO2: ,BG: ,PAIN: ,GCS: 15, 11:28,Digital respired carbon dioxide monitoring (regime/therapy),Response: UnchangedSucceeded, 11:28,BP: / M,PULSE: ,RR: R,SPO2: 100 Ox,ETCO2: ,BG: ,PAIN: ,GCS: , 11:28,BP: / M,PULSE: ,RR: R,SPO2: Ox,ETCO2: 40 ,BG: ,PAIN: ,GCS: , 11:29,BP: / M,PULSE: ,RR: R,SPO2: Ox,ETCO2: ,BG: ,PAIN: 7,GCS: , 11:32,Digital respired carbon dioxide monitoring (regime/therapy),Response: UnchangedSucceeded, 11:32,BP: / M,PULSE: ,RR: R,SPO2: 100 Ox,ETCO2: ,BG: ,PAIN: ,GCS: , 11:32,BP: 125/60 M,PULSE: 59,RR: 18 R,SPO2: Ox,ETCO2: ,BG: ,PAIN: ,GCS: , 11:32,BP: / M,PULSE: ,RR: R,SPO2: Ox,ETCO2: 41 ,BG: ,PAIN: ,GCS: , 11:32,BP: / M,PULSE: ,RR: R,SPO2: Ox,ETCO2: ,BG: ,PAIN: ,GCS: 15, 11:38,At Destination 11:56,Call Closed Disclaimer v1.1 Copyright 2020 [employer] This EMS Care Summary contains data elements from the applicable legal record (which may be displayed differently). It is designed to provide pertinent information for the following purposes: continuity of care, clinical quality, and state data reporting. The complete legal record is available to ED staff and administrators of the receiving hospital in [employer]'s Patient Tracker. All data is provided "as is."
[2020-01-13 14:24] LABS: ABSOLUTE NEUTROPHILS 4.2 thou/uL (1.4-8.2); BASOPHILS 0.3 % (0.0-2.0); EOSINOPHILS 1.5 % (0.0-3.0); HEMATOCRIT 33.1 % (37.0-47.0); HEMOGLOBIN 11.1 gm/dL (12.0-15.0); LYMPHOCYTES 27.5 % (24.0-44.0); MCH 31.9 pg (26.0-34.0); MCHC 33.4 g/dL (28.0-37.0); MCV 95.5 fL (80.0-100.0); MONOCYTES 5.4 % (1.0-8.0); PLATELET COUNT 183 thou/uL (150-400); POLYS 65.3 % (36.0-66.0); RBC 3.47 mil/uL (4.20-5.00); RDW 12.7 % (10.5-14.5); WBC 6.4 thou/uL (4.0-11.0)
[2020-01-13 14:34] LABS: ANION GAP 8 mmol/L (7-16); BUN 11 mg/dL (7-18); CALCIUM 8.8 mg/dL (8.5-10.1); CHLORIDE 107 mmol/L (98-107); CO2 28 mmol/L (21-32); GLUCOSE 120 mg/dL (74-106); POTASSIUM 3.9 mmol/L (3.5-5.1); SODIUM 143 mmol/L (136-145)
[2020-01-13 14:43] LABS: TROPONIN-I <0.06 ng/mL (<0.06)
[2020-01-13 17:04] VITALS: BP 121/52
--- NOTE | 2020-01-14 07:38 | EKG ---
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: kkriverdale : 1940 Requested By: Gael Ballesteros Order Number: [id number] MD: Josiah Jennings Measurements Intervals [place] Rate: 60 P: 81 [place]: 142 QRS: 83 QRSD: 107 T: 94 QT: 443 QTc: 443 Interpretive Statements Sinus rhythm Borderline right axis deviation Low voltage, precordial leads Nonspecific T abnormalities, lateral leads Compared to ECG 12/08/2019 13:53:31 T-wave abnormality now present Electronically Signed On 01-14-2020 7:38:48 CDT by Josiah Jennings [email or web address] <ELECTRONICALLY SIGNED> By: Josiah Jennings MD, [facility] 01/14/20 0738 1504 1504 Josiah Jennings MD, [facility] /EPI
== END 2020-01-13 17:04 | disposition home or self-care (01) ==
LOC: ER 11:43
PROVIDERS: Emergency Medicine
DX: R06.02 Shortness of breath (principal); I10 Essential (primary) hypertension; K21.9 Gastro-esophageal reflux disease without esophagitis; F41.9 Anxiety disorder, unspecified; E66.01 Morbid (severe) obesity due to excess calories; Z86.711 Personal history of pulmonary embolism; Z86.718 Personal history of other venous thrombosis and embolism; Z98.51 Tubal ligation status; Z90.49 Acquired absence of other specified parts of digestive tract; Z79.899 Other long term (current) drug therapy; Z79.82 Long term (current) use of aspirin; Z88.5 Allergy status to narcotic agent; Z88.8 Allergy status to other drugs, medicaments and biological substances; Z68.37 Body mass index [BMI] 37.0-37.9, adult

== ENCOUNTER → 2020-06-08 | Outpatient (CLI) | payer OTHER | LOC: SJCVCIMAG 08:53 | PROVIDERS: ATTEND Nuclear Medicine Nuclear Cardiology | DX: I65.23 Occlusion and stenosis of bilateral carotid arteries (principal); J44.9 Chronic obstructive pulmonary disease, unspecified; I77.9 Disorder of arteries and arterioles, unspecified; I26.99 Other pulmonary embolism without acute cor pulmonale; I10 Essential (primary) hypertension; Z90.49 Acquired absence of other specified parts of digestive tract; Z98.890 Other specified postprocedural states; Z95.828 Presence of other vascular implants and grafts; Z88.8 Allergy status to other drugs, medicaments and biological substances; Z79.82 Long term (current) use of aspirin; Z79.899 Other long term (current) drug therapy; Z87.891 Personal history of nicotine dependence; Z86.718 Personal history of other venous thrombosis and embolism; Z86.711 Personal history of pulmonary embolism ==

== ENCOUNTER 2020-07-23 14:04 | Emergency (ER) | payer OTHER ==
[~2020-07-23] VITALS: Ht 154.9 cm; Wt 100.7 kg
[2020-07-23 16:06] LABS: ANION GAP 1 mmol/L (7-16); BUN 13 mg/dL (7-18); CALCIUM 8.9 mg/dL (8.5-10.1); CHLORIDE 104 mmol/L (98-107); CO2 27 mmol/L (21-32); CREATININE 1.1 mg/dL (0.6-1.0); GLUCOSE 111 mg/dL (74-106); POTASSIUM 3.8 mmol/L (3.5-5.1); SODIUM 132 mmol/L (136-145)
[2020-07-23 16:07] LABS: ABSOLUTE NEUTROPHILS 4.4 thou/uL (1.4-8.2); BASOPHILS 0.3 % (0.0-2.0); EOSINOPHILS 1.1 % (0.0-3.0); HEMATOCRIT 35.7 % (37.0-47.0); HEMOGLOBIN 11.7 gm/dL (12.0-15.0); LYMPHOCYTES 31.9 % (24.0-44.0); MCH 31.1 pg (26.0-34.0); MCHC 32.7 g/dL (28.0-37.0); MCV 95.1 fL (80.0-100.0); MONOCYTES 6.1 % (1.0-8.0); PLATELET COUNT 218 thou/uL (150-400); POLYS 60.6 % (36.0-66.0); RBC 3.76 mil/uL (4.20-5.00); RDW 13.1 % (10.5-14.5); WBC 7.3 thou/uL (4.0-11.0)
[2020-07-23 16:16] LABS: ALBUMIN 3.6 g/dL (3.4-5.0); SGOT 20 U/L (15-37); SGPT 24 U/L (14-59); TOTAL BILIRUBIN 0.3 mg/dL (0.2-1.0); TROPONIN-I <0.06 ng/mL (<0.06)
[2020-07-23] MEDS ORDERED: OXYCODONE HCL E10 MG PO (16:30)
[2020-07-23 17:40] VITALS: BP 148/61
--- NOTE | 2020-07-26 07:20 | EKG ---
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: : 1940 Requested By: Kp Rodriguez Order Number: [id number] MD: Josiah Jennings Measurements Intervals [place] Rate: 58 P: 71 [place]: 148 QRS: 73 QRSD: 95 T: 80 QT: 452 QTc: 445 Interpretive Statements Sinus rhythm Low voltage, precordial leads Nonspecific T abnrm, anterolateral leads Compared to ECG 01/13/2020 15:04:08 T-wave abnormality no longer present Electronically Signed On 07-26-2020 7:20:05 CDT by Josiah Jennings [email or web address] <ELECTRONICALLY SIGNED> By: Josiah Jennings MD, [facility] 07/26/20 0720 1419 141 Josiah Jennings MD, [facility] /EPI
== END 2020-07-23 17:43 | disposition home or self-care (01) ==
LOC: ER 14:04
PROVIDERS: Emergency Medicine
DX: R06.02 Shortness of breath (principal); Z20.822 Contact with and (suspected) exposure to COVID-19; R52 Pain, unspecified; I10 Essential (primary) hypertension; K21.9 Gastro-esophageal reflux disease without esophagitis; J44.9 Chronic obstructive pulmonary disease, unspecified; Z88.5 Allergy status to narcotic agent; Z88.8 Allergy status to other drugs, medicaments and biological substances; Z79.899 Other long term (current) drug therapy; Z79.82 Long term (current) use of aspirin; Z98.51 Tubal ligation status; Z90.49 Acquired absence of other specified parts of digestive tract; Z86.718 Personal history of other venous thrombosis and embolism; Z86.711 Personal history of pulmonary embolism; Z98.890 Other specified postprocedural states

== ENCOUNTER → 2020-08-13 | Outpatient (CLI) | payer OTHER ==
[~2020-08-13] MED LIST changes: +OXYCODONE HCL E10 MG PO
== END ==
LOC: ULTRA 15:03
PROVIDERS: ATTEND Internal Medicine Pulmonary Disease
DX: R60.9 Edema, unspecified (principal); R06.00 Dyspnea, unspecified

== ENCOUNTER 2020-11-05 14:54 | Emergency (ER) | payer OTHER ==
[~2020-11-05] VITALS: Ht 154.9 cm; Wt 95.3 kg
[2020-11-05] MEDS ORDERED: CHILDREN'S ASPI81 M1 PO (15:41)
[2020-11-05] MEDS ORDERED: ZOLOFT25 MG PO (15:41)
[2020-11-05] MEDS ORDERED: ACETAMINOPHEN (15:42)
[2020-11-05 19:18] LABS: ABSOLUTE NEUTROPHILS 4.5 thou/uL (1.4-8.2); BASOPHILS 0.3 % (0.0-2.0); EOSINOPHILS 1.6 % (0.0-3.0); HEMATOCRIT 34.1 % (37.0-47.0); HEMOGLOBIN 11.1 gm/dL (12.0-15.0); LYMPHOCYTES 32.6 % (24.0-44.0); MCH 30.3 pg (26.0-34.0); MCHC 32.6 g/dL (28.0-37.0); MCV 92.9 fL (80.0-100.0); MONOCYTES 5.4 % (1.0-8.0); PLATELET COUNT 220 thou/uL (150-400); POLYS 60.1 % (36.0-66.0); RBC 3.67 mil/uL (4.20-5.00); WBC 7.4 thou/uL (4.0-11.0)
[2020-11-05 19:31] LABS: CREATININE 1.1 mg/dL (0.6-1.0); POTASSIUM 3.9 mmol/L (3.5-5.1)
[2020-11-05 19:38] LABS: ALBUMIN 3.5 g/dL (3.4-5.0); MAGNESIUM 1.9 mg/dL (1.8-2.4); TOTAL BILIRUBIN 0.4 mg/dL (0.2-1.0); TOTAL PROTEIN 7.1 g/dL (6.4-8.2)
[2020-11-05 20:19] VITALS: BP 188/80
== END 2020-11-05 20:37 | disposition home or self-care (01) ==
LOC: ER 14:54
PROVIDERS: Emergency Medicine
DX: G89.29 Other chronic pain (principal); R60.0 Localized edema; I10 Essential (primary) hypertension; K21.9 Gastro-esophageal reflux disease without esophagitis; E66.01 Morbid (severe) obesity due to excess calories; Z98.51 Tubal ligation status; Z90.49 Acquired absence of other specified parts of digestive tract; Z98.890 Other specified postprocedural states; Z86.711 Personal history of pulmonary embolism